=== PATIENT | male | born 1985 | race Two or more races ===

== ENCOUNTER 2017-07-02 09:22 | Emergency (ER) | payer OTHER | END 2017-07-02 11:50 | disposition home or self-care (01) | LOC: ER 09:22 | DX: S20.219A Contusion of unspecified front wall of thorax, initial encounter (principal); V43.52XA Car driver injured in collision with other type car in traffic accident, initial encounter; Y93.I9 Activity, other involving external motion; Y92.410 Unspecified street and highway as the place of occurrence of the external cause; Y99.8 Other external cause status | CPT/HCPCS: 71046; 71120; 99284 ==